=== PATIENT | female | born 1925 | race Caucasian/White ===

== ENCOUNTER 2017-06-20 19:13 | Emergency (ER) | payer MEDICARE ==
[2017-06-20 20:37] LABS: INR-International Normal Ratio 1.1; PTT 39.8 SEC (22.9-36.1); Prothrombin Time 13.9 SEC (12.0-14.7)
[2017-06-20 20:46] LABS: ALT (SGPT) 14 U/L (8-55); AST (SGOT) 22 U/L (5-34); Albumin 3.8 g/dL (3.4-4.8); Alkaline Phosphatase 51 U/L (40-150); Anion Gap 17 mmol/L (10-20); BUN (Urea Nitrogen) 21 mg/dL (9.8-20.1); Bilirubin, Total 0.5 mg/dL (0.2-1.2); Calc. Creatinine Clearance 0 mL/min (70-130); Calcium 9.2 mg/dL (7.8-10.44); Carbon Dioxide 22 mmol/L (23-31); Chloride 101 mmol/L (98-107); Estimated GFR-MDRD 52; Glucose 119 mg/dL (83-110); Potassium 3.6 mmol/L (3.5-5.1); Protein, Total 6.8 g/dL (6.0-8.3); Sodium 136 mmol/L (136-145)
[2017-06-20 20:48] LABS: CKMB 2.6 ng/mL (0-6.6); Troponin I 0.018 ng/mL (< 0.028)
[2017-06-20 20:50] LABS: Band 1 % (5-11); Eosinophils 3 % (0-10); Hemoglobin 12.7 g/dL (12.0-16.0); Lymphocytes 19 % (21-51); MDiff Complete? YES; Mean Corpuscular HGB CONC 32.9 g/dL (32.0-36.0); Mean Corpuscular Hemoglobin 29.5 pg (27.0-31.0); Mean Corpuscular Volume 89.7 fl (81.0-99.0); Monocytes 19 % (0-10); Neutrophil 58 % (42-75); Platelet Count 188 thou/uL (130-400); RBC Distribution Width 12.2 % (11.5-14.5); White Blood Cell (WBC) Count 4.3 thou/uL (4.8-10.8)
[2017-06-20 20:55] LABS: Bilirubin Small (Negative); Blood, Urine Trace (Negative); Clarity Cloudy (Clear); Glucose, Urine (Dipstick) Negative (Negative); Leukocyte Large (Negative); Nitrite Negative (Negative); Protein, Urine (Dipstick) 30 mg/dL (Neg-Trace); Specific Gravity, Urine 1.025 (1.005-1.030); pH, Urine 5.5 (5.0-9.0)
[2017-06-20 21:04] LABS: Bacteria/HPF 2+ HPF (None Seen); RBC/HPF 0-3 HPF (0-3); WBC/HPF 21-50 HPF (0-3)
[2017-06-20 21:05] LABS: Hyaline Casts/LPF 4-6 HYALINE CAST LPF (0-3 Hyaline)
[2017-06-20] MEDS ORDERED: Sodium Chloride 0.9% 100 ML ONE (21:26)
[2017-06-20] MEDS ORDERED: cefTRIAXone\\ROCEPHIN 1 GM VIAL ONE (21:26)
--- NOTE | 2017-06-20 22:15 | CT ---
CT OF THE BRAIN WITHOUT CONTRAST: 06/20/17 Comparison is made with a 10/07/14 study. No definite acute stroke was seen. It is perhaps slightly more lucent near the internal capsule on the left than the right, but that sli ght asymmetry is also seen on the prior study. ER physician noted there were no motor symptoms curren tly. There is no sign of bleeding or edema. No mass is present. Diffuse atrophy with mild tar roofer y dilatation of the ventricles commensurate with the degree of atrophy present was seen. The calvarium appears normal. The paranasal sinuses are clear. There might be some fluid in a few of the mastoid air cells near the tip of the mastoid process of the right temporal bone. This was not p resent in the prior scan. IMPRESSION: No acute intracranial finding. Findings discussed with Dr. Corey at 0247 on 06/20/17. POS: HOME
== END 2017-06-20 21:44 | disposition short-term general hospital (02) ==
LOC: BURERS 19:13
DX: N39.0 Urinary tract infection, site not specified (principal); R47.81 Slurred speech; R29.701 NIHSS score 1; E03.9 Hypothyroidism, unspecified; K21.9 Gastro-esophageal reflux disease without esophagitis; E78.5 Hyperlipidemia, unspecified; I10 Essential (primary) hypertension; F32.9 Major depressive disorder, single episode, unspecified; F41.9 Anxiety disorder, unspecified; Z79.82 Long term (current) use of aspirin; Z79.51 Long term (current) use of inhaled steroids; Z79.899 Other long term (current) drug therapy
CPT/HCPCS: 36415; 70450; 80053; 81003; 81015; 82553; 84484; 85025; 85610; 85730; 87086; 93005; 94760; 96374; J0696; J7050